=== PATIENT | female | born 1970 | race Caucasian/White ===

== ENCOUNTER 2020-11-27 19:05 | Emergency (ER) | payer OTHER ==
[~2020-11-27] VITALS: Ht 165.1 cm; Wt 74.8 kg
[~2020-11-27 19:05] MED LIST: ADDERALL; ALPRAZOLAM; FLEXERIL PO; LUNESTA; PERCOCET 5-3251 EACH PO; PROZAC
[2020-11-27] MEDS ORDERED: FLONASE 0.05%50 MCG NARES (19:23)
[2020-11-27] MEDS ORDERED: REMERON15 M1 PO (19:23)
[2020-11-27] MEDS ORDERED: IBUPROFEN 800800 M1 PO (19:37)
[2020-11-27] MEDS ORDERED: KEFLEX500 M1 PO (19:37)
[2020-11-27 20:03] VITALS: BP 148/68
== END 2020-11-27 20:03 | disposition home or self-care (01) ==
LOC: M.ERS 19:05
DX: L03.011 Cellulitis of right finger (principal); Z90.89 Acquired absence of other organs; Z79.899 Other long term (current) drug therapy; Z88.5 Allergy status to narcotic agent

== ENCOUNTER 2020-12-18 23:08 | Emergency (ER) | payer OTHER ==
[~2020-12-18] VITALS: Ht 165.1 cm; Wt 74.4 kg
[~2020-12-18 23:08] MED LIST changes: +FLONASE 0.05%50 MCG NARES; +IBUPROFEN 800800 M1 PO; +KEFLEX500 M1 PO; +REMERON15 M1 PO
[2020-12-19 00:03] VITALS: BP 144/97
== END 2020-12-19 00:03 | disposition home or self-care (01) ==
LOC: M.ERS 23:08
DX: T76.21XA Adult sexual abuse, suspected, initial encounter (principal); Z98.890 Other specified postprocedural states; Z90.89 Acquired absence of other organs; Z88.5 Allergy status to narcotic agent

== ENCOUNTER 2021-02-08 15:11 | Emergency (ER) | payer OTHER ==
[~2021-02-08] VITALS: Ht 165.1 cm; Wt 70.8 kg
[2021-02-08 16:20] VITALS: BP 138/77
[2021-02-10] MEDS ORDERED: CARAFATE1 GM PO (15:21)
== END 2021-02-08 16:20 | disposition home or self-care (01) ==
LOC: M.ERS 15:11
DX: S06.0X0A Concussion without loss of consciousness, initial encounter (principal); Z98.890 Other specified postprocedural states; Z88.5 Allergy status to narcotic agent; Z90.89 Acquired absence of other organs; W22.8XXA Striking against or struck by other objects, initial encounter; Y93.89 Activity, other specified; Y92.89 Other specified places as the place of occurrence of the external cause; Y99.8 Other external cause status